=== PATIENT | male | born 1940 | race Hispanic/Latino ===

== ENCOUNTER 2022-12-20 10:44 | Emergency (ER) | payer MEDICARE, OTHER ==
[~2022-12-20] VITALS: Ht 172.7 cm; Wt 58.4 kg
[2022-12-20 10:48] VITALS: TEMP 98.6
[2022-12-20] MEDS ORDERED: TRAZ1TAB14 PO (11:05)
[2022-12-20] MEDS ORDERED: ATAC8TAB PO (11:06)
[2022-12-20] MEDS ORDERED: ATOR40TA75 PO (11:07)
[2022-12-20] MEDS ORDERED: ZOLO100T PO (11:08)
[2022-12-20] MEDS ORDERED: TRAM50TA2 PO (11:09)
[2022-12-20] MEDS ORDERED: CIAL10TA PO (11:09)
[2022-12-20 12:10] LABS: BASO % 0.3 % (0.0-1.0); HEMATOCRIT 37.9 % (42.0-52.0); HEMOGLOBIN 13.3 g/dl (13.5-17.5); LYMPH # 0.7 10^3/uL (1.5-5.0); MEAN CORPUSCULAR HEMOGLOBIN 33.8 pg (27.0-33.0); MEAN CORPUSCULAR HGB CONC 35.1 g/dl (32.0-36.5); MEAN CORPUSCULAR VOLUME 96.2 fl (80.0-96.0); MONO # 0.4 10^3/uL (0.0-0.8); MONO % 14.4 % (2.0-8.0); NEUTROPHILS # 1.8 10^3/uL (1.5-8.5); PLATELET COUNT, AUTOMATED 199 10^3/uL (150-450); RED BLOOD COUNT 3.94 10^6/uL (4.30-6.10); WHITE BLOOD COUNT 2.9 10^3/uL (4.0-10.0)
[2022-12-20 12:35] LABS: ALBUMIN 4.1 G/DL (3.2-5.2); ALKALINE PHOSPHATASE 100 U/L (46-116); ALT/SGPT 31 U/L (7.0-40); AST/SGOT 48 U/L (<34); BILIRUBIN,DIRECT 0.3 MG/DL (<0.4); BILIRUBIN,TOTAL 0.8 MG/DL (0.3-1.2); BLOOD UREA NITROGEN 7 MG/DL (9-23); CALCIUM LEVEL 10.2 MG/DL (8.3-10.6); CARBON DIOXIDE LEVEL 29 MMOL/L (20-31); CHLORIDE LEVEL 103 MMOL/L (98-107); CREATININE FOR GFR 0.65 MG/DL (0.70-1.30); GLOMERULAR FILTRATION RATE > 60.0 (>35); GLUCOSE, FASTING 122 MG/DL (74-106); POTASSIUM SERUM 3.7 MMOL/L (3.5-5.1); SODIUM LEVEL 139 MMOL/L (136-145); TOTAL PROTEIN 6.7 G/DL (5.7-8.2)
[2022-12-20] MEDS: GASTROGRAFIN SOLUTION 30ML PO SCH ×2 (13:10→13:27)
[2022-12-20] MEDS ORDERED: ISOVUE-370 76% 100ML VIAL As Ordered ONE (14:08)
[2022-12-20 15:30] VITALS: O2SAT 85
[2022-12-20 17:01] VITALS: BP 133/86
== END 2022-12-20 17:24 | disposition home or self-care (01) ==
LOC: M ED 10:44
DX: R41.3 Other amnesia (principal); D72.819 Decreased white blood cell count, unspecified; I10 Essential (primary) hypertension; E78.5 Hyperlipidemia, unspecified; M54.50 Low back pain, unspecified; Z79.02 Long term (current) use of antithrombotics/antiplatelets; Z79.899 Other long term (current) drug therapy
CPT/HCPCS: 36415; 70450; 74177; 80048; 80076; 81001; 85025; 99284; Q9963; Q9967